=== PATIENT | male | born 1995 | race Caucasian/White ===

== ENCOUNTER 2016-10-02 19:50 | Emergency (ER) | payer OTHER ==
[~2016-10-02] VITALS: Ht 180.3 cm; Wt 86.4 kg
[2016-10-02 19:57] VITALS: BP 133/91; PULSE 81; TEMP 36.5; O2SAT 97; Ht 180.3 cm; Wt 86.4 kg
--- NOTE | 2016-10-02 20:00 | EMERGENCY ROOM VISIT NOTE ---
History Report prepared by Gerardo: Carlos Littlejohn Under the Supervision of: Dr. Tu Yun M.D. First contact with patient: 19:48 Chief Complaint: FALL Stated Complaint: FALL, HEAD LAC., ETOH History of Present Illness The patient is a 21 year old male who presents to the Emergency Room with complaints of a fall that occurred [employer]. He was drinking all day today when he slipped on the ice outside of a bar [place]. According to a bystander, he lost consciousness briefly when he hit his head on the ice. The bystander immediately called EMS. Initially, the patient did not want to be transported to the hospital. However, he was informed by me that this was against medical advice. He denies any neck pain at this time. 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 A total of 10 systems reviewed and were otherwise negative. Family History Patient reports no known family medical history. Social History Smoking Status: Never Smoker Smokeless Tobacco Use: No Alcohol Use: occasionally Marital Status: in relationship Occupation Status: student Current/Historical Medications Scheduled Sertraline (Zoloft), 25 MG PO DAILY Allergies Coded Allergies: Peanut (Unverified Allergy, Severe, ANAPHYLAXIS, 10/02/16) Physical Exam Vital Signs Date Time Temp Pulse Resp B/P Pulse Ox O2 Delivery O2 Flow Rate FiO2 10/02/16 19:57 36.5 81 18 133/91 97 Room Air Physical Exam GENERAL: Patient is a healthy-appearing well-nourished male, noncooperative HEAD: Normocephalic atraumatic. Small laceration to the posterior head. EYES: horizontal nystagmus present; pupils equal and react to light OROPHARYNX mucous membranes are moist no exudates present no erythema or edema present NECK: Supple no nuchal rigidity CHEST: Good equal expansion LUNGS: Clear and equal to auscultation CARDIAC: Normal S1 and S2 ABDOMEN: Soft nontender no guarding BACK: No CVA tenderness EXTREMITIES: No pain upon palpation normal muscle strength in all groups no clubbing cyanosis or edema NEURO: Patient is following commands is answering questions appropriately. Alert and oriented x3 Cranial Nerves 2-12 grossly intact Medical Decision & Procedures ER Provider Diagnostic Interpretation: Radiology results as stated below per my review and radiologist interpretation: CT SCAN OF THE BRAIN WITHOUT IV CONTRAST CLINICAL HISTORY: Fall. Intoxication. COMPARISON STUDY: No priors. TECHNIQUE: Unenhanced axial CT scan of the brain is performed from the vertex to the skull base. Automated dose control exposure was utilized. The vertex was scanned twice due to motion artifact. CT DOSE: 1133.32 mGy.cm FINDINGS: Brain parenchyma: The brain parenchyma is normal in appearance. There is no hemorrhage, mass effect, or evidence of acute territorial ischemia by CT criteria. Olson-white matter is preserved. No extra-axial fluid collection is seen. Ventricles, sulci, cisterns: Normal in configuration. Intracranial vasculature: The visualized intracranial vasculature at the skull base is normal in appearance. Calvarium: There is no depressed calvarial fracture. Soft tissues: There is a right parietal scalp injury with skin clips. Sinuses and mastoids: Mild mucosal thickening is seen within the left frontal and ethmoid sinuses. The remaining visualized paranasal sinuses are clear. The mastoid air cells are well pneumatized. Orbits: The bony orbits are grossly intact. IMPRESSION: No acute intracranial abnormality. Electronically signed by: Rodrigo Farley M.D. 10/02/2016 8:18 PM Dictated Date/Time: 10/02/2016 8:16 PM Procedure Location: Posterior head Total length: 2.6 cm Complexity: Closed Verbal consent was obtained after the risks and benefits were explained, including but not limited to bleeding, scarring, infection, pain, and bone/joint /nerve damage. At this time, the risks of the procedure are less than the risks of NOT performing the procedure. A time out was taken and the correct patient and site identified. The skin was prepped with betadine. The target area was not anesthetized. Copious irrigation was performed using normal saline. The skin was re-prepped with betadine and a sterile field set. The wound was explored for foreign bodies and none found. Examination revealed no injury to deep structures such as tendons, bone, or significant blood vessels. Debridement was not performed. The wound edges were approximated using 4 jakob. Hemostasis and excellent approximation was achieved. Antibacterial ointment and a sterile dressing applied. Detailed wound care instructions and signs and symptoms of infection reviewed with the patient. No complications and the patient tolerated the procedure well. ED Course 1947: Past medical records reviewed. The patient was evaluated in room C9. A complete history and physical examination was performed. 2000: At this time, I performed a laceration repair procedure. See procedure note for further detail. 2024: I offered to contact his parents at this time. The patient adamantly refused. 2029: Upon reexamination the patient is resting. I discussed results and treatment plan with the patient. He verbalizes agreement and understanding. The patient is ready for discharge. Medical Decision Differential diagnosis: Etiologies such as fracture, dislocation, intra-abdominal, pneumothorax, intrathoracic , intracranial, neurologic, as well as other traumatic pathologies were entertained. This is a 21-year-old male who presents emergency department intoxicated and belligerent after falling and hitting his head downtown. The patient loss consciousness and initially tried to refuse care however he could not find a sober friend to be released to. He was therefore brought in via ambulance. Upon arrival to the emergency department the patient is making a scene and will not stay in his room for this reason security was called. I will note that this was during a period of high volume high acuity in the emergency department. He will not respect other patient's right to privacy. He is risking a catastrophe. The patient's laceration was repaired as above. The patient's CAT scan is normal per the radiologist. I strongly advised the patient to stay in the emergency department for the next 4 hours to be monitored. He is adamantly refusing. His friend is willing to take him home however I stressed the need to return if the patient loses consciousness, loss of balance or coordination, projectile vomiting. In addition I also recommended that the patient stop drinking this evening and that he discuss this visit with his parents. I also offered to call the patient's parents however he adamantly refused. Impression Primary Impression: Laceration Additional Impressions: Alcohol intoxication Head injury Fall Scribe Attestation The scribe's documentation has been prepared under my direction and personally reviewed by me in its entirety. I confirm that the note above accurately reflects all work, treatment, procedures, and medical decision making performed by me. Departure Information Dispostion Against Medical Advice Referrals [facility] (PCP) Forms HOME CARE DOCUMENTATION FORM, IMPORTANT VISIT INFORMATION, School Instructions, Work Instructions Patient Instructions ED Head Injury Closed, ED Laceration Ext Sutr Stap Tape, [facility] Additional Instructions Strongly recommend being observed for 4 hours Return if loss of balance, coordination, projectile vomiting, severe headache develop NO MORE ALCOHOL TONIGHT STRONGLY RECOMMEND DISCUSSING VISIT WITH YOUR PARENTS Jakob out in 7-10 days You have been examined and treated today on an emergency basis only. This is not a substitute for, or an effort to provide, complete comprehensive medical care. It is impossible to recognize and treat all injuries or illnesses in a single emergency department visit. It is therefore important that you follow up closely with [facility]. Call as soon as possible for an appointment. Thank you for your time and consideration. I look forward to speaking with you again soon. Please don't hesitate to call us if you have any questions. Problem Qualifiers Additional Impressions: Alcohol intoxication Complication of substance-induced condition: uncomplicated Qualified Codes: F10.120 - Alcohol abuse with intoxication, uncomplicated Head injury Encounter type: initial encounter Qualified Codes: S09.90XA - Unspecified injury of head, initial encounter Fall Encounter type: initial encounter Qualified Codes: W19.XXXA - Unspecified fall, initial encounter
[2016-10-02] MEDS ORDERED: SERT25TA PO (20:01)
--- NOTE | 2016-10-02 20:20 | DIAGNOSTIC IMAGING REPORT ---
CT SCAN OF THE BRAIN WITHOUT IV CONTRAST CLINICAL HISTORY: Fall. Intoxication. COMPARISON STUDY: No priors. TECHNIQUE: Unenhanced axial CT scan of the brain is performed from the vertex to the skull base. Automated dose control exposure was utilized. The vertex was scanned twice due to motion artifact. CT DOSE: 1133.32 mGy.cm FINDINGS: Brain parenchyma: The brain parenchyma is normal in appearance. There is no hemorrhage, mass effect, or evidence of acute territorial ischemia by CT criteria. Olson-white matter is preserved. No extra-axial fluid collection is seen. Ventricles, sulci, cisterns: Normal in configuration. Intracranial vasculature: The visualized intracranial vasculature at the skull base is normal in appearance. Calvarium: There is no depressed calvarial fracture. Soft tissues: There is a right parietal scalp injury with skin clips. Sinuses and mastoids: Mild mucosal thickening is seen within the left frontal and ethmoid sinuses. The remaining visualized paranasal sinuses are clear. The mastoid air cells are well pneumatized. Orbits: The bony orbits are grossly intact. IMPRESSION: No acute intracranial abnormality. Electronically signed by: Rodrigo Farley M.D. 10/02/2016 8:18 PM Dictated Date/Time: 10/02/2016 8:16 PM
== END 2016-10-02 20:38 | disposition home or self-care (01) ==
LOC: EDBD 19:50 → C.EDC 19:52
DX: S01.01XA Laceration without foreign body of scalp, initial encounter (principal); W00.0XXA Fall on same level due to ice and snow, initial encounter; F10.120 Alcohol abuse with intoxication, uncomplicated; Z79.899 Other long term (current) drug therapy; Y90.9 Presence of alcohol in blood, level not specified